=== PATIENT | female | born 1965 | race Caucasian/White ===

== ENCOUNTER 2025-04-27 21:28 | Emergency (ER) | payer BC ==
[~2025-04-27] VITALS: Ht 157.5 cm; Wt 68.0 kg
[2025-04-27 21:39] VITALS: BP 133/76
[2025-04-27 22:06] LABS: *BILIRUBIN,URIN 3+ (NEGATIVE); *BLOOD, URINE 3+ (NEGATIVE); *CLARITY,URINE CLOUDY (CLEAR); *COLOR,URINE RED (YELLOW); *KETONES,URINE 1+ (NEGATIVE); *PROTEIN,URINE 3+ (NEGATIVE); *UROBILINOGEN,URINE 2.0 E.U./dl (NORMAL); LEUKOCYTE ESTERASE ,URINE 3+ (NEGATIVE); NITRITE, URINE POSITIVE (NEGATIVE); UGLUCOSE NEGATIVE (NEGATIVE)
[2025-04-27] MEDS ORDERED: CEFTRIAXONE 500 MG VIAL ONE (22:33)
[2025-04-27] MEDS ORDERED: LIDOCAINE HCL 1% 20 ML VIAL ONE (22:33)
[2025-04-27] MEDS ORDERED: PHENAZOPYRIDINE HCL 100 MG TABLET ONE (22:33)
[2025-04-27] MEDS ORDERED: CEPH500C2 PO (22:34)
[2025-04-27] MEDS ORDERED: PHEN-894 PO (22:35)
[2025-04-27] MEDS: CEFTRIAXONE 500 MG VIAL IM ONE (22:38)
[2025-04-27] MEDS: PHENAZOPYRIDINE HCL 100 MG TABLET PO ONE (22:38)
[2025-04-27 22:53] VITALS: BP 133/76; TEMP 98; O2SAT 100
== END 2025-04-27 23:04 | disposition home or self-care (01) ==
LOC: ER 21:28
DX: N30.01 Acute cystitis with hematuria (principal); R30.0 Dysuria; E11.9 Type 2 diabetes mellitus without complications; Z88.2 Allergy status to sulfonamides
CPT/HCPCS: 99283; 81001; 87086; 96372; J0696; J3490; 87077; A4606; A4663